=== PATIENT | male | born 1960 | race Caucasian/White ===

== ENCOUNTER 2020-10-03 20:07 | Emergency (ER) | payer MEDICARE ==
[2020-10-03 20:53] LABS: #Eosinphils 0.3 thou/uL (0.0-0.7); #Lymphocytes 1.8 thou/uL (1.20-3.40); #Monocytes 0.5 thou/uL (0.11-0.59); #Neutrophils 5.1 thou/uL (1.40-6.50); %Basophils 0.3 % (0.0-1.0); %Eosinophils 3.6 % (0.0-10.0); %Lymphocytes 22.8 % (21.0-51.0); %Monocytes 6.7 % (0.0-10.0); %Neutrophils 66.6 % (42.0-75.0); Hemoglobin 15.9 g/dL (14.0-18.0); Mean Corpuscular HGB CONC 35.1 g/dL (32.0-36.0); Mean Corpuscular Hemoglobin 33.4 pg (27.0-31.0); Mean Corpuscular Volume 95.4 fL (78.0-98.0); Mean Platelet Volume 8.2 fL (7.4-10.4); Platelet Count 167 thou/uL (130-400); RBC Distribution Width 11.8 % (11.5-14.5); Red Blood Cell (RBC) Count 4.76 mill/uL (4.70-6.10); White Blood Cell (WBC) Count 7.7 thou/uL (4.8-10.8)
[2020-10-03 21:17] LABS: ALT (SGPT) 11 U/L (8-55); AST (SGOT) 13 U/L (5-34); Albumin 4.4 g/dL (3.4-4.8); Alkaline Phosphatase 74 U/L (40-110); Anion Gap 14 mmol/L (10-20); BUN (Urea Nitrogen) 12 mg/dL (8.4-25.7); Bilirubin, Total 0.8 mg/dL (0.2-1.2); Calc. Creatinine Clearance 0 mL/min (70-130); Calcium 9.5 mg/dL (7.8-10.44); Carbon Dioxide 24 mmol/L (23-31); Chloride 103 mmol/L (98-107); Globulin 3.1 g/dL (2.4-3.5); Glucose 113 mg/dL (80-115); Potassium 3.7 mmol/L (3.5-5.1); Protein, Total 7.5 g/dL (5.8-8.1); Sodium 137 mmol/L (136-145)
[2020-10-03] MEDS ORDERED: Labetalol HCl 100 MG/20 ML VIAL ONE (22:49)
[2020-10-03] MEDS ORDERED: hydrALAZINE 20 MG/ML VIAL ONE (22:59)
== END 2020-10-04 00:56 | disposition home or self-care (01) ==
LOC: ERS 20:07
DX: I10 Essential (primary) hypertension (principal); R42 Dizziness and giddiness; F17.210 Nicotine dependence, cigarettes, uncomplicated; Z79.899 Other long term (current) drug therapy
CPT/HCPCS: 80053; 84484; 85025; 93005; 94760; 96374; J0360

== ENCOUNTER 2021-07-28 18:05 | Inpatient (IN) | payer MEDICARE ==
[2021-07-28] MEDS ORDERED: Ondansetron ODT 4 MG TAB PO PRN (22:21)
[2021-07-28] MEDS ORDERED: Acetaminophen 650 MG Suppository PR PRN (22:21)
[2021-07-28] MEDS ORDERED: Ondansetron PF 4 MG/2 ML Vial IVP PRN (22:21)
[2021-07-28] MEDS ORDERED: Acetaminophen 325 MG TAB PO PRN (22:21)
[2021-07-28] MEDS ORDERED: Pantoprazole 40 MG VIAL IVP SCH (22:30)
[2021-07-28 22:42] VITALS: BMI 28.3
[2021-07-28] MEDS ORDERED: Piperacillin/Tazobactam 3.375 GM in Sodium Chloride 0.9% 100 ML IVPB SCH (22:45)
[2021-07-28] MEDS: Sodium Chloride 0.9% 1,000 ML IV SCH (23:09)
[2021-07-28] MEDS: Morphine 4 MG/ML VIAL SLOW IVP PRN (23:10)
[2021-07-29 05:06] LABS: SARS-CoV-2 NAA Rapid Test Not Detected (NotDetected)
[2021-07-29] MEDS: Piperacillin/Tazobactam 3.375 GM in Sodium Chloride 0.9% 100 ML IVPB SCH ×3 (05:12→20:42)
[2021-07-29 06:19] LABS: #Basophils 0.1 thou/uL (0.0-0.2); #Lymphocytes 1.7 thou/uL (1.20-3.40); #Monocytes 0.7 thou/uL (0.11-0.59); #Neutrophils 6.5 thou/uL (1.40-6.50); %Basophils 0.6 % (0.0-1.0); %Eosinophils 0.3 % (0.0-10.0); %Lymphocytes 19.1 % (21.0-51.0); %Monocytes 7.4 % (0.0-10.0); %Neutrophils 72.6 % (42.0-75.0); Hemoglobin 10.5 g/dL (14.0-18.0); Mean Corpuscular HGB CONC 32.2 g/dL (32.0-36.0); Mean Corpuscular Hemoglobin 30.9 pg (27.0-31.0); Mean Platelet Volume 6.9 fL (7.4-10.4); Platelet Count 241 thou/uL (130-400); RBC Distribution Width 12.1 % (11.5-14.5); White Blood Cell (WBC) Count 8.9 thou/uL (4.8-10.8)
[2021-07-29 06:32] LABS: Hemoglobin A1c 5.4 % (4.0-6.0)
[2021-07-29 06:44] LABS: Anion Gap 13 mmol/L (10-20); BUN (Urea Nitrogen) 15 mg/dL (8.4-25.7); Calc. Creatinine Clearance 138 mL/min (70-130); Calcium 8.8 mg/dL (7.8-10.44); Carbon Dioxide 26 mmol/L (23-31); Chloride 106 mmol/L (98-107); Glucose 109 mg/dL (80-115); Sodium 141 mmol/L (136-145)
[2021-07-29] MEDS: Sodium Chloride 0.9% 1,000 ML IV SCH ×2 (08:25→19:50)
[2021-07-29] MEDS: Pantoprazole 40 MG VIAL IVP SCH ×2 (08:25→20:43)
[2021-07-29] MEDS: Morphine 4 MG/ML VIAL SLOW IVP PRN ×3 (09:26→20:43)
[2021-07-30] MEDS: Morphine 4 MG/ML VIAL SLOW IVP PRN ×4 (01:58→22:23)
[2021-07-30] MEDS: Piperacillin/Tazobactam 3.375 GM in Sodium Chloride 0.9% 100 ML IVPB SCH ×3 (04:27→20:04)
[2021-07-30] MEDS: Sodium Chloride 0.9% 1,000 ML IV SCH ×3 (04:28→20:11)
[2021-07-30] MEDS: D5W-AA 4.25% with LYTES 1,000 ML IV SCH ×2 (09:09→20:05)
[2021-07-30] MEDS: Pantoprazole 40 MG VIAL IVP SCH ×2 (09:10→20:05)
[2021-07-31] MEDS: Piperacillin/Tazobactam 3.375 GM in Sodium Chloride 0.9% 100 ML IVPB SCH ×3 (03:51→20:18)
[2021-07-31] MEDS: D5W-AA 4.25% with LYTES 1,000 ML IV SCH ×2 (06:05→17:44)
[2021-07-31] MEDS: Pantoprazole 40 MG VIAL IVP SCH ×2 (08:56→20:18)
[2021-07-31] MEDS: Morphine 4 MG/ML VIAL SLOW IVP PRN ×2 (08:56→20:19)
[2021-07-31] MEDS: Sodium Chloride 0.9% 1,000 ML IV SCH ×2 (12:35→20:19)
[2021-08-01] MEDS: Sodium Chloride 0.9% 1,000 ML IV SCH ×2 (03:58→18:23)
[2021-08-01] MEDS: Piperacillin/Tazobactam 3.375 GM in Sodium Chloride 0.9% 100 ML IVPB SCH ×3 (03:58→20:02)
[2021-08-01 06:18] LABS: #Eosinphils 0.1 thou/uL (0.0-0.7); #Lymphocytes 1.8 thou/uL (1.20-3.40); #Monocytes 0.6 thou/uL (0.11-0.59); #Neutrophils 5.1 thou/uL (1.40-6.50); %Basophils 0.4 % (0.0-1.0); %Eosinophils 1.8 % (0.0-10.0); %Lymphocytes 23.1 % (21.0-51.0); %Monocytes 7.9 % (0.0-10.0); %Neutrophils 66.7 % (42.0-75.0); Hemoglobin 11.2 g/dL (14.0-18.0); Mean Corpuscular HGB CONC 32.7 g/dL (32.0-36.0); Mean Corpuscular Hemoglobin 30.9 pg (27.0-31.0); Mean Corpuscular Volume 94.3 fL (78.0-98.0); Mean Platelet Volume 6.9 fL (7.4-10.4); Platelet Count 202 thou/uL (130-400); RBC Distribution Width 12.1 % (11.5-14.5); Red Blood Cell (RBC) Count 3.63 mill/uL (4.70-6.10); White Blood Cell (WBC) Count 7.7 thou/uL (4.8-10.8)
[2021-08-01 06:32] LABS: Anion Gap 12 mmol/L (10-20); BUN (Urea Nitrogen) 13 mg/dL (8.4-25.7); Calc. Creatinine Clearance 130 mL/min (70-130); Calcium 9.1 mg/dL (7.8-10.44); Carbon Dioxide 26 mmol/L (23-31); Chloride 105 mmol/L (98-107); Glucose 99 mg/dL (80-115); Sodium 139 mmol/L (136-145)
[2021-08-01] MEDS: Pantoprazole 40 MG VIAL IVP SCH ×2 (11:06→20:09)
[2021-08-01] MEDS ORDERED: hydrALAZINE 20 MG/ML VIAL SLOW IVP PRN (14:26)
[2021-08-01] MEDS: D5W-AA 4.25% with LYTES 1,000 ML IV SCH (15:42)
[2021-08-01] MEDS: Morphine 4 MG/ML VIAL SLOW IVP PRN (21:32)
[2021-08-02] MEDS: Sodium Chloride 0.9% 1,000 ML IV SCH (02:27)
[2021-08-02] MEDS: Piperacillin/Tazobactam 3.375 GM in Sodium Chloride 0.9% 100 ML IVPB SCH ×4 (04:35→22:03)
[2021-08-02] MEDS: Pantoprazole 40 MG VIAL IVP SCH ×2 (09:58→22:03)
[2021-08-02] MEDS ORDERED: Melatonin 3 MG TAB PO SCH (22:30)
[2021-08-03] MEDS: Piperacillin/Tazobactam 3.375 GM in Sodium Chloride 0.9% 100 ML IVPB SCH (04:34)
[2021-08-03 08:12] VITALS: TEMP 98.1
[2021-08-03] MEDS: Lisinopril 20 MG TAB PO SCH ×2 (09:52→09:57)
[2021-08-03] MEDS: Pantoprazole 40 MG VIAL IVP SCH (09:52)
== END 2021-08-03 12:59 | disposition home or self-care (01) | DRG 382 ==
LOC: SURG A 20:33
PROVIDERS: ADMIT Family Medicine; ATTEND Internal Medicine
DX: K26.5 Chronic or unspecified duodenal ulcer with perforation (principal); Z20.822 Contact with and (suspected) exposure to COVID-19; I10 Essential (primary) hypertension; G89.29 Other chronic pain; K59.00 Constipation, unspecified; K29.80 Duodenitis without bleeding; D64.9 Anemia, unspecified; F17.210 Nicotine dependence, cigarettes, uncomplicated; M54.50 Low back pain, unspecified; Z88.6 Allergy status to analgesic agent; Z79.899 Other long term (current) drug therapy; Z91.041 Radiographic dye allergy status; Z91.013 Allergy to seafood; Z90.49 Acquired absence of other specified parts of digestive tract
CPT/HCPCS: 36415; 74240; 80048; 83036; 85025; 87338; C9113; J2270; J2543; J3490; J7050; U0002